=== PATIENT | male | born 1960 ===

== ENCOUNTER 2017-10-20 21:01 | Emergency (ER) | payer SELFPAY ==
[2017-10-20 21:01] VITALS: BMI 36.0
[2017-10-20 21:43] VITALS: BP 138/77; PULSE 75; RESP 16; TEMP 98.2; O2SAT 99
[2017-10-20] MEDS ORDERED: Sodium Chloride 0.9% 1,000 ML IV STA (23:10)
[2017-10-21 00:04] LABS: BASO % 0.4 % (0.0-2.0); EOS # 0.1 K/uL (0.0-0.7); EOS % 1.1 % (0.0-4.0); HEMOGLOBIN 15.2 g/dL (12.0-18.0); LYMPH # 2.8 K/uL (1.0-4.3); LYMPH % 34.2 % (20.0-40.0); MEAN CELL VOLUME 86.6 fl (80.0-94.0); MEAN CORPUSCULAR HGB CONC 33.5 g/dL (33.0-37.0); MEAN PLATELET VOLUME 10.7 fl (7.2-11.7); MONO # 0.6 K/uL (0.0-0.8); MONO % 7.1 % (0.0-10.0); NEUT # 4.7 K/uL (1.8-7.0); NEUT % 57.2 % (50.0-75.0); NRBC % 0.1 % (0.0-0.0); RBC 5.25 Mil/uL (4.40-5.90); RED CELL DISTRIBUTION WIDTH 13.9 % (11.5-14.5); WHITE BLOOD COUNT 8.2 K/uL (4.8-10.8)
[2017-10-21 00:06] LABS: ALB/GLOB RATIO 1.4 (1.0-2.1); ALBUMIN 4.1 g/dL (3.5-5.0); ALT/SGPT 47 U/L (21-72); AST/SGOT 21 U/L (17-59); BLOOD UREA NITROGEN 14 mg/dl (9-20); CALCIUM 9.4 mg/dL (8.4-10.2); GFR AFRICAN-AMERICAN > 60; GFR NON-AFRICAN AMERICAN > 60
[2017-10-21 00:07] LABS: SQUAMOUS EPITHIAL < 1 /hpf (0-5); URINE BILIRUBIN NEGATIVE (NEGATIVE); URINE BLOOD NEGATIVE (NEGATIVE); URINE CLARITY CLEAR (Clear); URINE COLOR STRAW (YELLOW); URINE GLUCOSE (UA) >=500 mg/dL (Normal); URINE LEUKOCYTE ESTERASE NEG Leu/uL (Negative); URINE PROTEIN NEGATIVE (NEGATIVE); URINE UROBILINOGEN 0.2-1.0 mg/dL (0.2-1.0)
[2017-10-21] MEDS ORDERED: Sodium Chloride 0.9% 1,000 ML IV STA (00:50)
--- NOTE | 2017-10-21 00:57 | ED PDOC ---
Hyperglycemia/Hypoglycemia Time Seen by Provider: 10/20/17 23:02 Chief Complaint (Nursing): Headache Chief Complaint (Provider): Hyperglycemia History Per: Patient History/Exam Limitations: no limitations Onset/Duration Of Symptoms: Hrs (6 hours ago) Current Symptoms Are (Timing): Still Present : The patient does not have any of the infectious symptoms listed except for those marked. Additional Complaint(s): 56 yo male with a history of hypertension,diabetes, and right foot surgery, presents to the ED complaining of hyperglycemia, onset of 6 hours ago. Patient reports checking his blood sugar this evening and noted that it was above 350. He states that is blood sugar is usually well controlled on the home medications and the victoza injection he receives. He experiences dry mouth and weakness, but denies any nausea, vomiting, diarrhea, or chest pain. Patient has been compliant with his medications and states that he did not eat anything to cause his hyperglycemia. pmd: Ruth Wilson Past Medical History Reviewed: Historical Data, Nursing Documentation, Vital Signs Vital Signs: Last Vital Signs Temp 98.2 F 10/20/17 21:41 Pulse 75 10/20/17 21:41 Resp 16 10/20/17 21:41 BP 138/77 10/20/17 21:41 Pulse Ox 99 10/20/17 21:41 - Medical History PMH: Diabetes, HTN Denies: Chronic Kidney Disease - Surgical History Other surgeries: right foot surgery - Family History Family History: States: Unknown Family Hx - Social History Current smoker - smoking cessation education provided: No Ex-Smoker (has not smoked in the last 12 months): No Alcohol: None Drugs: Denies - Home Medications Home Medications: Ambulatory Orders Medication Instructions Recorded Glyburide/Metformin HCl 1 tab PO DAILY 05/16/14 [Glyburide/Metformin 2.5 mg-500 mg] Liraglutide [Victoza] 1.2 mg SC DAILY 05/16/14 Lisinopril/Hydrochlorothiazide 1 tab PO DAILY 05/16/14 [Lisinopril-Hydrochlorothiazide 12.5 mg-20 mg] - Allergies Allergies/Adverse Reactions: Allergies Allergy/AdvReac Type Severity Reaction Status Date / Time No Known Allergies Allergy Verified 05/16/14 11:39 Review of Systems ROS Statement: Except As Marked, All Systems Reviewed And Found Negative Constitutional: Positive for: Weakness, Other (dry mouth) Cardiovascular: Negative for: Chest Pain Gastrointestinal: Negative for: Nausea, Vomiting, Diarrhea Physical Exam - Reviewed Nursing Documentation Reviewed: Yes Vital Signs Reviewed: Yes - Physical Exam Appears: Positive for: Well, Non-toxic, No Acute Distress Head Exam: Positive for: ATRAUMATIC, NORMAL INSPECTION, NORMOCEPHALIC Skin: Positive for: Normal Color, Warm, DRY Eye Exam: Positive for: EOMI, Normal appearance, PERRL ENT: Positive for: Normal ENT Inspection Neck: Positive for: Normal, Painless ROM Cardiovascular/Chest: Positive for: Regular Rate, Rhythm. Negative for: Murmur Respiratory: Positive for: Normal Breath Sounds. Negative for: Respiratory Distress Gastrointestinal/Abdominal: Positive for: Normal Exam, Soft. Negative for: Tenderness Back: Positive for: Normal Inspection Extremity: Positive for: Normal ROM. Negative for: Pedal Edema, Deformity Neurologic/Psych: Positive for: Alert, Oriented. Negative for: Motor/Sensory Deficits - Laboratory Results Result Diagrams: 10/20/17 23:47 10/20/17 23:47 - ECG O2 Sat by Pulse Oximetry: 99 (RA) Pulse Ox Interpretation: Normal Medical Decision Making Medical Decision Making: Time: --23:11 Impression: --56 yo male with hyperglycemia in setting of known Diabetes Plan: --ECG --ED Urine Dip --IV Fluids --[place] Insertion --Accucheck Reassess --:41 Labs reviewed and reveal no clinically significant abnormalities. blood sugar improved after 2L of fluid and patient reports of improvement of symptoms and is stable for discharge home. Diagnosis: hyperglycemia Scribe Attestation: Documented by Ja Coronel acting as a scribe for Rufus Pinto MD. Provider Attestation: All medical record entries made by the Scribe were at my direction and personally dictated by me. I have reviewed the chart and agree that the record accurately reflects my personal performance of the history, physical exam, medical decision making, and the department course for this patient. I have also personally directed, reviewed, and agree with the discharge instructions and disposition. Disposition - Clinical Impression Clinical Impression: Hyperglycemia due to type 2 diabetes mellitus - Patient ED Disposition Is Patient to be Admitted: No - Disposition Disposition: Routine/Home Disposition Time: :41 Condition: IMPROVED Instructions: Type 2 Diabetes, Hyperglycemia, Adult Forms: 2,10E+07 (Swedish) Print Language: LITHUANIAN
--- NOTE | 2017-10-21 21:18 | CARD ---
APPROVED REPORT EKG Measurement Heart [id number] <Conclusion> Normal sinus rhythm Normal ECG
== END 2017-10-21 01:40 | disposition home or self-care (01) ==
LOC: H.ER 21:01
DX: E11.65 Type 2 diabetes mellitus with hyperglycemia (principal); I10 Essential (primary) hypertension; Z79.84 Long term (current) use of oral hypoglycemic drugs; Z87.891 Personal history of nicotine dependence
CPT/HCPCS: 80053; 81003; 82948; 85025; 93005; 96360; 99283; J7040